=== PATIENT | female | born 1940 ===

== ENCOUNTER 2020-06-05 13:09 | Inpatient (IN) ==
[2020-06-05] MEDS ORDERED: Senna TAB 8.6 mg TAB PO PRN (19:28)
[2020-06-05] MEDS ORDERED: Dextrose 50% Syringe 50 ml 25 GM/50 ML SYRINGE IV PUSH PRN (19:37)
[2020-06-05] MEDS ORDERED: Albuterol HFA INHALER 8 gm MDI INH PRN (19:39)
[2020-06-05] MEDS: Dorzolamide 2% OPTH (NF) 10 ML BTL BOTH EYES SCH (23:34)
[2020-06-06] MEDS: Aspirin EC 325 mg TAB.EC PO SCH (08:21)
[2020-06-06] MEDS: Dorzolamide 2% OPTH (NF) 10 ML BTL BOTH EYES SCH (08:23)
[2020-06-06] MEDS: Potassium Chlor 10 meq TAB PO SCH (08:30)
[2020-06-06] MEDS: Latanoprost 0.005% 2.5 ml BTL BOTH EYES SCH (17:02)
[2020-06-06] MEDS: PTO: Dorzolamide 2% OPTH (NF) 10 ML BTL BOTH EYES SCH (21:43)
[2020-06-07 05:29] LABS: Hematocrit 38 % (35-47); Hemoglobin 11.8 g/dL (12.0-16.0); Mean Corpuscular HGB Conc 31 g/dL (31-36); Mean Corpuscular Hemoglobin 29 pg (27-31); Mean Corpuscular Volume 93 fL (80-97); Mean Platelet Volume 9.5 fL (7.4-10.4); Platelet Count 447 10^3/uL (150-450); Red Blood Count 4.05 10^6 /uL (3.70-4.87); Red Cell Distribution Width 19 % (10-15); White Blood Count 83.8 10^3/uL (3.5-10.8)
[2020-06-07 05:42] LABS: Albumin 3.1 g/dL (3.2-5.2); CO2 Carbon Dioxide 28 mmol/L (22-32); Calcium 8.1 mg/dL (8.6-10.3); Chloride 103 mmol/L (101-111); Sodium 137 mmol/L (135-145)
[2020-06-07 05:43] LABS: Anion Gap 6 mmol/L (2-11)
[2020-06-07 05:48] LABS: ALT 22 U/L (7-52); Albumin/Globulin Ratio 1.1 (1-3); Alkaline Phosphatase 62 U/L (34-104); BUN/Creatinine Ratio 31.8 (8-20); Blood Urea Nitrogen 27 mg/dL (6-24); EGFR African American 78.3 (>60); EGFR Non-African American 64.7 (>60); Globulin 2.9 g/dL (2-4); Glucose 183 mg/dL (70-100)
[2020-06-07 08:04] LABS: ABS Basophils 0.6 10^3/ul (0-0.2); ABS Eosinophils 0.5 10^3/ul (0-0.6); ABS Lymphocytes 1.1 10^3/ul (1.0-4.8); ABS Monocytes 2.2 10^3/ul (0-0.8); ABS Neutrophils 79.4 10^3/ul (1.5-7.7); ABS Nucleated RBC 0.7 10^3/ul; Eosinophil % 0.6 %; Lymphocyte % 1.3 %; Nucleated Red Blood Cells % 0.9
[2020-06-07 10:18] LABS: Potassium Redraw 4.3 mmol/L (3.5-5.0)
[2020-06-07] MEDS: Aspirin EC 325 mg TAB.EC PO SCH (10:18)
[2020-06-07] MEDS: Potassium Chlor 10 meq TAB PO SCH (10:19)
[2020-06-07] MEDS: PTO: Dorzolamide 2% OPTH (NF) 10 ML BTL BOTH EYES SCH ×2 (10:19→20:26)
[2020-06-07] MEDS: Latanoprost 0.005% 2.5 ml BTL BOTH EYES SCH (18:35)
[2020-06-07] MEDS ORDERED: HYDROcodone/ACETAMIN 5/325 mg TAB PO PRN (20:15)
[2020-06-08] MEDS: Potassium Chlor 10 meq TAB PO SCH (10:36)
[2020-06-08] MEDS: PTO: Dorzolamide 2% OPTH (NF) 10 ML BTL BOTH EYES SCH ×2 (10:36→19:43)
[2020-06-08] MEDS: Aspirin EC 325 mg TAB.EC PO SCH (10:36)
[2020-06-08 16:16] VITALS: BP 95/52
[2020-06-08] MEDS: Latanoprost 0.005% 2.5 ml BTL BOTH EYES SCH (19:42)
[2020-06-09] MEDS ORDERED: EPINEPHrine SYR 0.1MG/ML 10 ml SYRINGE ONE (06:20)
== END 2020-06-09 06:36 | disposition expired | DRG 57 ==
LOC: PMRU 19:15
PROVIDERS: ADMIT Physical Medicine & Rehabilitation; ATTEND Physical Medicine & Rehabilitation